=== PATIENT | female | born 1965 | race Caucasian/White ===

== ENCOUNTER 2024-06-08 14:16 | Emergency (ER) | payer BC, OTHER ==
[2024-06-08] MEDS: EPINEPHrine 1 MG/ML SDV IM ONE (14:16)
[2024-06-08] MEDS: diphenhydrAMINE 50 MG/ML SDV IVPUSH ONE (14:19)
[2024-06-08] MEDS: methylPREDNISolone Sodium Succinate 125 MG/2 ML SDV IVPUSH ONE (14:20)
[2024-06-08] MEDS: Sodium Chloride 0.9% 1,000 ML IV ONE (14:32)
[2024-06-08] MEDS: Sodium Chloride 0.9% 10 ML Syringe FLUSH PRN (14:32)
[2024-06-08] MEDS: Famotidine 20 MG/2 ML SDV IVPUSH ONE (14:37)
== END 2024-06-08 17:29 | disposition home or self-care (01) ==
LOC: JP.ED 14:16
DX: T63.441A Toxic effect of venom of bees, accidental (unintentional), initial encounter (principal); Z90.49 Acquired absence of other specified parts of digestive tract
CPT/HCPCS: 96361; 96372; 96374; 96375; 99284; J0171; J1200; J2919; J3490; J7030